=== PATIENT | female | born 1965 | race Caucasian/White ===

== ENCOUNTER 2025-03-17 18:10 | Emergency (ER) | payer OTHER ==
[2025-03-17] MEDS ORDERED: Acetaminophen 500 MG TAB ONE (19:05)
== END 2025-03-17 19:24 | disposition home or self-care (01) ==
LOC: MADERS 18:10
DX: M54.16 Radiculopathy, lumbar region (principal); I10 Essential (primary) hypertension; F17.290 Nicotine dependence, other tobacco product, uncomplicated
CPT/HCPCS: 96372; 99283; J1100